=== PATIENT | female | born 1960 | race African-American/Black ===

== ENCOUNTER 2021-03-16 07:57 | Outpatient (CLI) | payer BC | END 2021-03-16 07:58 | disposition home or self-care (01) | LOC: CSHCP 07:57 | PROVIDERS: ATTEND Family Medicine | DX: R06.02 Shortness of breath (principal) | CPT/HCPCS: 94060; 94726; 94729; 94760 ==

== ENCOUNTER 2021-09-14 15:02 | Outpatient (CLI) | payer BC | END 2021-09-14 15:03 | disposition home or self-care (01) | LOC: CSHMAMMO 15:02 | PROVIDERS: ATTEND Family Medicine | DX: Z12.31 Encounter for screening mammogram for malignant neoplasm of breast (principal) | CPT/HCPCS: 77063; 77067 ==

== ENCOUNTER 2021-12-11 17:16 | Observation (INO) | payer BC ==
[2021-12-11 18:22] LABS: #Basophils 0.1 10x3/uL (0.0-0.2); #Eosinphils 0.1 10x3/uL (0.0-0.5); #Monocytes 0.5 10x3/uL (0.0-1.1); %Basophils 0.7 % (0.0-2.0); %Eosinophils 1.3 % (0.0-6.0); %Lymphocytes 16.1 % (18.0-47.0); %Neutrophils 73.6 % (40.0-75.0); Hemoglobin 8.7 g/dL (12.0-15.5); Mean Corpuscular HGB CONC 31.2 g/dL (32.0-36.0); Mean Corpuscular Hemoglobin 24.9 pg (27.0-33.0); Mean Corpuscular Volume 79.7 fl (81.6-98.3); Mean Platelet Volume 11.9 fl (7.4-10.4); Platelet Count 254 10x3/uL (150-450); RBC Distribution Width 14.6 % (11.5-14.5); White Blood Cell (WBC) Count 6.8 10x3/uL (3.5-10.5)
[2021-12-11 18:33] LABS: Phosphorus 3.6 mg/dL (2.3-4.7)
[2021-12-11 18:35] LABS: ALT (SGPT) 12 U/L (8-55); AST (SGOT) 12 U/L (5-34); Albumin 3.5 g/dL (3.4-4.8); Alkaline Phosphatase 84 U/L (40-110); Anion Gap 17 mmol/L (10-20); BUN (Urea Nitrogen) 39 mg/dL (9.8-20.1); Bilirubin, Total 0.3 mg/dL (0.2-1.2); Calc. Creatinine Clearance 0 mL/min (70-130); Calcium 8.8 mg/dL (7.8-10.44); Carbon Dioxide 19 mmol/L (23-31); Chloride 109 mmol/L (98-107); Globulin 3.4 g/dL (2.4-3.5); Glucose 199 mg/dL (80-115); Magnesium 1.8 mg/dL (1.6-2.6); Potassium 4.4 mmol/L (3.5-5.1); Protein, Total 6.9 g/dL (5.8-8.1); Sodium 141 mmol/L (136-145)
[2021-12-11 19:09] LABS: SARS-CoV-2 NAA Rapid Test Not Detected (NotDetected)
[2021-12-11] MEDS ORDERED: Dextrose 5% in Water 1,000 ML IV PRN (19:14)
[2021-12-11] MEDS ORDERED: Guaifenesin DM 100-10/5 ML UDCUP PO PRN (19:14)
[2021-12-11] MEDS ORDERED: Senokot S 8.6-50 MG TAB PO PRN (19:14)
[2021-12-11] MEDS ORDERED: Calcium Carbonate 500 MG ChewTAB PO PRN (19:14)
[2021-12-11] MEDS ORDERED: Dextrose 50% Abboject 50 ML SYRINGE SLOW IVP PRN (19:14)
[2021-12-11] MEDS ORDERED: Acetaminophen 325 MG TAB PO PRN (19:14)
[2021-12-11] MEDS ORDERED: HumaLOG 300 UNITS/3 ML VIAL SC PRN (19:14)
[2021-12-11] MEDS ORDERED: Metoclopramide HCl 10 MG/2 ML VIAL IVP SCH (20:30)
[2021-12-11] MEDS ORDERED: Furosemide 20 MG/2 ML VIAL SLOW IVP SCH (20:30)
[2021-12-11] MEDS ORDERED: EPOETIN ALFA-EPBX (ESRD) 4,000 UNIT/ML VIAL SC SCH (21:00)
[2021-12-11] MEDS ORDERED: Non-Formulary Medication 1 EACH (Brimonidine Tartrate/Timolol [Combigan 0.2%-0.5% Eye Drop R EYE SCH (21:00)
[2021-12-11] MEDS ORDERED: Lantus 1000 UNITS/10 ML VIAL SC SCH (21:00)
[2021-12-11 22:19] VITALS: BMI 35.2
[2021-12-11] MEDS: hydrALAZINE 25 MG TAB PO SCH (22:50)
[2021-12-11] MEDS: Atorvastatin Calcium 40 MG TAB PO SCH (22:50)
[2021-12-11] MEDS: traZODone HCl 50 MG TAB PO SCH (22:50)
[2021-12-11] MEDS: Heparin 5,000 UNITS/ML VIAL SC SCH (22:51)
[2021-12-11] MEDS: Brimonidine Tartrate 0.2% Ophth Soln 5 ml Bottle R EYE SCH (22:56)
[2021-12-11] MEDS: Timolol 0.5% Ophth Soln 5 ml Bottle R EYE SCH (22:56)
[2021-12-12 05:17] LABS: #Eosinphils 0.1 10x3/uL (0.0-0.5); #Monocytes 0.6 10x3/uL (0.0-1.1); #Neutrophils 3.6 10x3/uL (1.5-8.4); %Basophils 0.7 % (0.0-2.0); %Eosinophils 1.5 % (0.0-6.0); %Lymphocytes 28.1 % (18.0-47.0); %Monocytes 10.1 % (0.0-10.0); %Neutrophils 59.4 % (40.0-75.0); Mean Corpuscular HGB CONC 31.5 g/dL (32.0-36.0); Mean Corpuscular Hemoglobin 25.4 pg (27.0-33.0); Mean Corpuscular Volume 80.6 fl (81.6-98.3); Mean Platelet Volume 12.1 fl (7.4-10.4); Platelet Count 274 10x3/uL (150-450); RBC Distribution Width 14.6 % (11.5-14.5); Red Blood Cell (RBC) Count 3.15 10x6/uL (3.90-5.03); White Blood Cell (WBC) Count 6.1 10x3/uL (3.5-10.5)
[2021-12-12 05:36] LABS: Anion Gap 15 mmol/L (10-20); BUN (Urea Nitrogen) 40 mg/dL (9.8-20.1); Calc. Creatinine Clearance 18 mL/min (70-130); Calcium 8.7 mg/dL (7.8-10.44); Carbon Dioxide 22 mmol/L (23-31); Chloride 111 mmol/L (98-107); Glucose 111 mg/dL (80-115); Sodium 144 mmol/L (136-145)
[2021-12-12] MEDS ORDERED: Ferrous Sulfate 325 MG TAB PO SCH (09:00)
[2021-12-12] MEDS ORDERED: METOPROLOL SUCCINATE 200 MG PO SCH (09:00)
[2021-12-12] MEDS: Calcitriol 0.25 MCG CAP PO SCH (09:04)
[2021-12-12] MEDS: Timolol 0.5% Ophth Soln 5 ml Bottle R EYE SCH (09:04)
[2021-12-12] MEDS: Ferrous Sulfate 325 MG TAB PO SCH ×2 (09:04→15:12)
[2021-12-12] MEDS: Alogliptin 6.25 MG TAB PO SCH (09:04)
[2021-12-12] MEDS: Clopidogrel Bisulfate 75 MG TAB PO SCH (09:04)
[2021-12-12] MEDS: Heparin 5,000 UNITS/ML VIAL SC SCH ×3 (09:04→21:11)
[2021-12-12] MEDS: hydrALAZINE 25 MG TAB PO SCH ×3 (09:05→21:10)
[2021-12-12] MEDS: Brimonidine Tartrate 0.2% Ophth Soln 5 ml Bottle R EYE SCH ×2 (09:05→21:12)
[2021-12-12] MEDS: Ondansetron PF 4 MG/2 ML Vial IVP PRN (10:11)
[2021-12-12 15:05] LABS: Hep B Surf Ag Non-Reactive S/CO (NonReactive)
[2021-12-12] MEDS ORDERED: NIFEdipine XL 30 MG TAB PO SCH (21:00)
[2021-12-12] MEDS: Atorvastatin Calcium 40 MG TAB PO SCH (21:09)
[2021-12-12] MEDS: FLUoxetine HCl 20 MG CAP PO SCH (21:10)
[2021-12-12] MEDS: traZODone HCl 50 MG TAB PO SCH (21:10)
[2021-12-12] MEDS: TOUJEO SC SCH (21:11)
[2021-12-13 04:52] LABS: Anion Gap 12 mmol/L (10-20); BUN (Urea Nitrogen) 26 mg/dL (9.8-20.1); Calc. Creatinine Clearance 21 mL/min (70-130); Calcium 8.6 mg/dL (7.8-10.44); Carbon Dioxide 25 mmol/L (23-31); Chloride 105 mmol/L (98-107); Glucose 180 mg/dL (80-115); Potassium 4.2 mmol/L (3.5-5.1); Sodium 138 mmol/L (136-145)
[2021-12-13 05:09] LABS: #Eosinphils 0.1 10x3/uL (0.0-0.5); #Monocytes 0.7 10x3/uL (0.0-1.1); #Neutrophils 3.6 10x3/uL (1.5-8.4); %Basophils 0.6 % (0.0-2.0); %Eosinophils 1.8 % (0.0-6.0); %Lymphocytes 32.2 % (18.0-47.0); %Monocytes 10.4 % (0.0-10.0); %Neutrophils 54.7 % (40.0-75.0); Hemoglobin 8.5 g/dL (12.0-15.5); Mean Corpuscular HGB CONC 30.8 g/dL (32.0-36.0); Mean Corpuscular Hemoglobin 24.8 pg (27.0-33.0); Mean Corpuscular Volume 80.5 fl (81.6-98.3); Mean Platelet Volume 11.9 fl (7.4-10.4); Platelet Count 301 10x3/uL (150-450); RBC Distribution Width 14.6 % (11.5-14.5); Red Blood Cell (RBC) Count 3.43 10x6/uL (3.90-5.03); White Blood Cell (WBC) Count 6.5 10x3/uL (3.5-10.5)
[2021-12-13] MEDS: Aspirin 81 mg Enteric Coated Tablet PO SCH (12:39)
[2021-12-13] MEDS: Calcitriol 0.25 MCG CAP PO SCH (12:39)
[2021-12-13] MEDS: Alogliptin 6.25 MG TAB PO SCH (12:39)
[2021-12-13] MEDS: Ondansetron PF 4 MG/2 ML Vial IVP PRN ×2 (12:39→20:28)
[2021-12-13] MEDS: Ferrous Sulfate 325 MG TAB PO SCH ×2 (12:39→16:07)
[2021-12-13] MEDS: hydrALAZINE 25 MG TAB PO SCH ×3 (12:40→20:30)
[2021-12-13] MEDS: Clopidogrel Bisulfate 75 MG TAB PO SCH (12:40)
[2021-12-13] MEDS: Heparin 5,000 UNITS/ML VIAL SC SCH ×3 (12:40→20:27)
[2021-12-13] MEDS: Brimonidine Tartrate 0.2% Ophth Soln 5 ml Bottle R EYE SCH ×2 (12:40→23:19)
[2021-12-13] MEDS: Amlodipine 10 MG TAB PO SCH (12:40)
[2021-12-13] MEDS ORDERED: Heparin 10,000 UNITS/ 10 ML VIAL FS PRN (13:11)
[2021-12-13] MEDS ORDERED: Tuberculin PPD 0.1 ML VIAL I-DERMAL SCH (13:15)
[2021-12-13 15:04] LABS: HBSAB Concentration Less than 8.00 mIU/mL; Hep B Surf AB Non-Reactive (NonReactive); Hep C IgG Ab Non-Reactive (NonReactive); Hep C Index 0.41 S/CO (0-0.79)
[2021-12-13 17:02] LABS: Hep B Core Total Ab Non-Reactive (NonReactive); Hep B Core Total Index 0.05 S/CO (0-0.79)
[2021-12-13] MEDS: FLUoxetine HCl 20 MG CAP PO SCH (20:24)
[2021-12-13] MEDS: TOUJEO SC SCH (20:24)
[2021-12-13] MEDS: Atorvastatin Calcium 40 MG TAB PO SCH (20:24)
[2021-12-13] MEDS: traZODone HCl 50 MG TAB PO SCH (20:25)
[2021-12-14] MEDS: Ferrous Sulfate 325 MG TAB PO SCH ×2 (10:50→15:29)
[2021-12-14] MEDS: Brimonidine Tartrate 0.2% Ophth Soln 5 ml Bottle R EYE SCH ×2 (10:51→22:37)
[2021-12-14] MEDS: Alogliptin 6.25 MG TAB PO SCH (10:51)
[2021-12-14] MEDS: Aspirin 81 mg Enteric Coated Tablet PO SCH (10:51)
[2021-12-14] MEDS: Amlodipine 10 MG TAB PO SCH (10:51)
[2021-12-14] MEDS: Clopidogrel Bisulfate 75 MG TAB PO SCH (10:52)
[2021-12-14] MEDS: Calcitriol 0.25 MCG CAP PO SCH (10:52)
[2021-12-14] MEDS: Heparin 5,000 UNITS/ML VIAL SC SCH ×3 (10:52→20:28)
[2021-12-14] MEDS: hydrALAZINE 25 MG TAB PO SCH ×3 (10:53→20:27)
[2021-12-14] MEDS: FLUoxetine HCl 20 MG CAP PO SCH (20:27)
[2021-12-14] MEDS: Atorvastatin Calcium 40 MG TAB PO SCH (20:28)
[2021-12-14] MEDS: traZODone HCl 50 MG TAB PO SCH (20:28)
[2021-12-14] MEDS: TOUJEO SC SCH (20:35)
[2021-12-15] MEDS ORDERED: READ PPD TEST SITE PO SCH (09:00)
[2021-12-15] MEDS: Brimonidine Tartrate 0.2% Ophth Soln 5 ml Bottle R EYE SCH (10:45)
[2021-12-15] MEDS: Heparin 5,000 UNITS/ML VIAL SC SCH (10:46)
[2021-12-15] MEDS: Clopidogrel Bisulfate 75 MG TAB PO SCH (10:48)
[2021-12-15] MEDS: Amlodipine 10 MG TAB PO SCH (10:48)
[2021-12-15] MEDS: Calcitriol 0.25 MCG CAP PO SCH (10:48)
[2021-12-15] MEDS: Ferrous Sulfate 325 MG TAB PO SCH (10:49)
[2021-12-15] MEDS: Aspirin 81 mg Enteric Coated Tablet PO SCH (10:49)
[2021-12-15] MEDS: hydrALAZINE 25 MG TAB PO SCH (10:49)
[2021-12-15] MEDS: Alogliptin 6.25 MG TAB PO SCH (10:49)
[2021-12-15 11:28] VITALS: BP 138/59; TEMP 97.9
== END 2021-12-15 16:45 | disposition home or self-care (01) ==
LOC: CSHERS 17:16 → CSHTELE 22:15
PROVIDERS: ADMIT Student in an Organized Health Care Education/Training Program; ATTEND Hospitalist
DX: I12.0 Hypertensive chronic kidney disease with stage 5 chronic kidney disease or end stage renal disease (principal); E11.22 Type 2 diabetes mellitus with diabetic chronic kidney disease; N18.6 End stage renal disease; R11.2 Nausea with vomiting, unspecified; I25.10 Atherosclerotic heart disease of native coronary artery without angina pectoris; E11.65 Type 2 diabetes mellitus with hyperglycemia; Z79.4 Long term (current) use of insulin; Z79.899 Other long term (current) drug therapy; Z95.5 Presence of coronary angioplasty implant and graft; G47.33 Obstructive sleep apnea (adult) (pediatric); D63.1 Anemia in chronic kidney disease; Z20.822 Contact with and (suspected) exposure to COVID-19
CPT/HCPCS: 36415; 36416; 71045; 80048; 80053; 83735; 84100; 84484; 85025; 86580; 86704; 86706; 86803; 87340; 90935; 93005; 96372; 96374; 96375; 96376; G0257; G0378; J1644; J1815; J1940; J2405; J2765; Q5105; U0002

== ENCOUNTER 2022-09-02 07:16 | Emergency (ER) | payer BC ==
[2022-09-02 07:55] LABS: #Eosinphils 0.2 10x3/uL (0.0-0.5); #Monocytes 0.6 10x3/uL (0.0-1.1); #Neutrophils 4.6 10x3/uL (1.5-8.4); %Basophils 0.4 % (0.0-2.0); %Lymphocytes 28.4 % (18.0-47.0); %Monocytes 8.3 % (0.0-10.0); %Neutrophils 60.5 % (40.0-75.0); Hemoglobin 10.6 g/dL (12.0-15.5); Mean Corpuscular HGB CONC 32.1 g/dL (32.0-36.0); Mean Corpuscular Hemoglobin 27.4 pg (27.0-33.0); Mean Corpuscular Volume 85.3 fl (81.6-98.3); Mean Platelet Volume 12.4 fl (7.4-10.4); Platelet Count 190 10x3/uL (150-450); RBC Distribution Width 15.7 % (11.5-14.5); Red Blood Cell (RBC) Count 3.87 10x6/uL (3.90-5.03); White Blood Cell (WBC) Count 7.6 10x3/uL (3.5-10.5)
[2022-09-02 08:08] LABS: Anion Gap 17 mmol/L (10-20); BUN (Urea Nitrogen) 39 mg/dL (9.8-20.1); Calc. Creatinine Clearance 0 mL/min (70-130); Calcium 9.2 mg/dL (7.8-10.44); Carbon Dioxide 23 mmol/L (23-31); Chloride 104 mmol/L (98-107); Estimated GFR 7; Glucose 147 mg/dL (80-115); Potassium 4.1 mmol/L (3.5-5.1); Sodium 140 mmol/L (136-145)
== END 2022-09-02 11:10 | disposition home or self-care (01) ==
LOC: CSHERS 07:16
DX: T82.591A Other mechanical complication of surgically created arteriovenous shunt, initial encounter (principal); I12.0 Hypertensive chronic kidney disease with stage 5 chronic kidney disease or end stage renal disease; E11.22 Type 2 diabetes mellitus with diabetic chronic kidney disease; I25.10 Atherosclerotic heart disease of native coronary artery without angina pectoris; N18.6 End stage renal disease; Z99.2 Dependence on renal dialysis; Z86.16 Personal history of COVID-19
CPT/HCPCS: 80048; 85025; 99284

== ENCOUNTER 2022-12-06 09:52 | Outpatient (CLI) | payer BC | END 2022-12-06 09:53 | disposition home or self-care (01) | LOC: CSHMAMMO 09:52 | PROVIDERS: ATTEND Family Medicine | DX: Z12.31 Encounter for screening mammogram for malignant neoplasm of breast (principal); Z13.820 Encounter for screening for osteoporosis; Z78.0 Asymptomatic menopausal state | CPT/HCPCS: 77063; 77067; 77080 ==

== ENCOUNTER 2023-02-27 12:35 | Outpatient (CLI) | payer BC | END 2023-02-27 12:36 | disposition home or self-care (01) | LOC: CSHMRI 12:35 | PROVIDERS: ATTEND Family Medicine | DX: M47.816 Spondylosis without myelopathy or radiculopathy, lumbar region (principal) | CPT/HCPCS: 72148 ==

== ENCOUNTER 2024-05-25 16:15 | Emergency (ER) | payer BC ==
[2024-05-25] MEDS ORDERED: Ondansetron PF 4 MG/2 ML Vial ONE (17:10)
[2024-05-25] MEDS ORDERED: fentaNYL 50 mcg/mL 1 mL Vial ONE ×2 (17:10→18:03)
[2024-05-25 17:24] LABS: #Basophils 0.06 10x3/uL (0.0-0.2); #Monocytes 0.85 10x3/uL (0.0-1.1); #Neutrophils 5.07 10x3/uL (1.5-8.4); %Basophils 0.8 % (0.0-2.0); %Eosinophils 2.7 % (0.0-6.0); %Lymphocytes 16.2 % (18.0-47.0); %Monocytes 11.5 % (0.0-10.0); %Neutrophils 68.5 % (40.0-75.0); Hematocrit 36.1 % (34.9-44.5); Hemoglobin 11.1 g/dL (12.0-15.5); Mean Corpuscular HGB CONC 30.7 g/dL (32.0-36.0); Mean Corpuscular Hemoglobin 28.2 pg (27.0-33.0); Mean Corpuscular Volume 91.9 fL (81.6-98.3); Mean Platelet Volume 11.7 fL (7.4-10.4); Platelet Count 212 10x3/uL (150-450); RBC Distribution Width 20.9 % (11.5-14.5); Red Blood Cell (RBC) Count 3.93 10x6/uL (3.90-5.03); White Blood Cell (WBC) Count 7.4 10x3/uL (3.5-10.5)
[2024-05-25 17:32] LABS: ALT (SGPT) 27 U/L (8-55); AST (SGOT) 29 U/L (5-34); Albumin 3.2 g/dL (3.4-4.8); Alkaline Phosphatase 91 U/L (40-110); Anion Gap 24 mmol/L (10-20); BUN (Urea Nitrogen) 40 mg/dL (9.8-20.1); Bilirubin, Total 0.2 mg/dL (0.2-1.2); Calc. Creatinine Clearance 0 mL/min (70-130); Calcium 9.6 mg/dL (7.8-10.44); Carbon Dioxide 19 mmol/L (23-31); Chloride 99 mmol/L (98-107); Estimated GFR 4; Globulin 3.7 g/dL (2.4-3.5); Glucose 514 mg/dL (80-115); Lipase 59 U/L (8-78); Potassium 4.3 mmol/L (3.5-5.1); Protein, Total 6.9 g/dL (5.8-8.1); Sodium 138 mmol/L (136-145)
[2024-05-25] MEDS ORDERED: Insulin Regular, Human 100 UNIT/ML 10 ML VIAL ONE (18:30)
[2024-05-25 19:07] LABS: Influenza A by NAA Not Detected (NotDetected); Influenza B by NAA Not Detected (NotDetected); RSV by NAA Not Detected (NotDetected); SARS-CoV-2 NAA Rapid Test Not Detected (NotDetected)
[2024-05-27 11:40] LABS: Actual Bicarbonate (HCO3v) 22.4 mEq/L (22-28); Analyzer IN Cardio CS ICU; Base Excess -2.2 mEq/L (-2 - +2); Calcium, Ionized (venous) 1.08 mmol/L (1.16-1.32); Chloride (VBG) 98 mmol/L (98-106); Hematocrit-VBG 34 % (36.0-47.0); Hemoglobin (Hb) 11.7 g/dL (11.7-16.0); Potassium (VBG) 4.33 mmol/L (3.70-5.30); Puncture Site Other Site; RapidComm Collect By cbn; Sodium 140 mmol/L (133-146)
== END 2024-05-25 22:58 | disposition home or self-care (01) ==
LOC: CSHERS 16:15
DX: R10.9 Unspecified abdominal pain (principal); I12.0 Hypertensive chronic kidney disease with stage 5 chronic kidney disease or end stage renal disease; N18.6 End stage renal disease; E11.22 Type 2 diabetes mellitus with diabetic chronic kidney disease; Z99.2 Dependence on renal dialysis; Z55.6 Problems related to health literacy; E78.5 Hyperlipidemia, unspecified; I25.10 Atherosclerotic heart disease of native coronary artery without angina pectoris; Z79.82 Long term (current) use of aspirin; Z79.899 Other long term (current) drug therapy
CPT/HCPCS: 0241U; 36415; 36416; 71045; 74176; 80053; 82010; 82805; 83605; 83690; 83930; 85025; 87149; 93005; 96361; 96374; 96375; 96376; J1815; J2405; J3010

== ENCOUNTER 2024-06-03 10:38 | Emergency (ER) | payer BC ==
[2024-06-03] MEDS ORDERED: Ondansetron ODT 4 MG TAB ONE (11:49)
[2024-06-03 11:53] LABS: #Basophils 0.04 10x3/uL (0.0-0.2); #Eosinphils 0.18 10x3/uL (0.0-0.5); #Monocytes 0.97 10x3/uL (0.0-1.1); #Neutrophils 7.59 10x3/uL (1.5-8.4); %Basophils 0.4 % (0.0-2.0); %Eosinophils 1.8 % (0.0-6.0); %Lymphocytes 10.2 % (18.0-47.0); %Monocytes 9.9 % (0.0-10.0); %Neutrophils 77.3 % (40.0-75.0); Hematocrit 34.6 % (34.9-44.5); Hemoglobin 10.6 g/dL (12.0-15.5); Mean Corpuscular HGB CONC 30.6 g/dL (32.0-36.0); Mean Corpuscular Hemoglobin 28.4 pg (27.0-33.0); Mean Corpuscular Volume 92.8 fL (81.6-98.3); Mean Platelet Volume 11.3 fL (7.4-10.4); Platelet Count 262 10x3/uL (150-450); RBC Distribution Width 21.1 % (11.5-14.5); Red Blood Cell (RBC) Count 3.73 10x6/uL (3.90-5.03); White Blood Cell (WBC) Count 9.8 10x3/uL (3.5-10.5)
[2024-06-03 12:08] LABS: ALT (SGPT) 23 U/L (8-55); AST (SGOT) 24 U/L (5-34); Albumin 3.1 g/dL (3.4-4.8); Alkaline Phosphatase 84 U/L (40-110); Anion Gap 22 mmol/L (10-20); BUN (Urea Nitrogen) 75 mg/dL (9.8-20.1); Bilirubin, Total 0.2 mg/dL (0.2-1.2); Calc. Creatinine Clearance 0 mL/min (70-130); Calcium 8.9 mg/dL (7.8-10.44); Carbon Dioxide 19 mmol/L (23-31); Chloride 108 mmol/L (98-107); Estimated GFR 3; Globulin 3.6 g/dL (2.4-3.5); Glucose 173 mg/dL (80-115); Protein, Total 6.7 g/dL (5.8-8.1); Sodium 144 mmol/L (136-145)
[2024-06-03] MEDS ORDERED: HYDROcodone/Acetaminophen 5/325 mg Tablet ONE (14:16)
[2024-06-03 14:35] LABS: Bilirubin Neg (Negative); Blood, Urine 250 (Negative); Clarity Cloudy (Clear); Glucose, Urine (Dipstick) 250 mg/dL (Negative); Ketone, Urine Negative (Negative); Leukocyte 500 (Negative); Nitrite Negative (Negative); Protein, Urine (Dipstick) 100 mg/dl (Neg-Trace); Specific Gravity, Urine 1.005 (1.005-1.030); Urobilinogen Normal mg/dL (Less than 2)
[2024-06-03 15:07] LABS: CAUTI Indications for Culture Dysuria,urgency,freq
[2024-06-03 15:08] LABS: Bacteria/HPF 2+ HPF (None Seen); RBC/HPF 21-50 HPF (0-3); Squamous Epithelial 0-3 HPF (0-3); WBC/HPF Greater than 50 HPF (0-3)
[2024-06-03 15:09] LABS: Mucous/LPF 1+ LPF (<2+); White Blood Cell Cast 0-3 LPF (None Seen)
[2024-06-03 15:10] LABS: Urine Culture Reflex Yes Yes
== END 2024-06-03 15:47 | disposition short-term general hospital (02) ==
LOC: CSHERS 10:38
DX: T83.2 Mechanical complication of graft of urinary organ (principal); I12.0 Hypertensive chronic kidney disease with stage 5 chronic kidney disease or end stage renal disease; E11.22 Type 2 diabetes mellitus with diabetic chronic kidney disease; N18.6 End stage renal disease; I25.10 Atherosclerotic heart disease of native coronary artery without angina pectoris; Z99.2 Dependence on renal dialysis; Z79.899 Other long term (current) drug therapy; Z79.82 Long term (current) use of aspirin
CPT/HCPCS: 36415; 80053; 81001; 85025; 87086; 93005; Q0162

== ENCOUNTER 2024-08-16 10:49 | Outpatient (CLI) | payer BC | END 2024-08-16 10:50 | disposition home or self-care (01) | LOC: CSHMAMMO 10:49 | PROVIDERS: ATTEND Family Medicine | DX: Z12.31 Encounter for screening mammogram for malignant neoplasm of breast (principal) | CPT/HCPCS: 77063; 77067 ==

== ENCOUNTER 2024-09-23 10:31 | Outpatient (CLI) | payer BC | END 2024-09-23 10:32 | disposition home or self-care (01) | LOC: CSHCP 10:31 | PROVIDERS: ATTEND Internal Medicine Critical Care Medicine | DX: R06.09 Other forms of dyspnea (principal); J98.4 Other disorders of lung | CPT/HCPCS: 71250; 94060; 94618; 94726; 94729 ==

== ENCOUNTER 2024-10-08 10:19 | Outpatient (CLI) | payer BC | END 2024-10-08 10:20 | disposition home or self-care (01) | LOC: CSHCT 10:19 | PROVIDERS: ATTEND Specialist | DX: M47.22 Other spondylosis with radiculopathy, cervical region (principal); M50.121 Cervical disc disorder at C4-C5 level with radiculopathy; M50.122 Cervical disc disorder at C5-C6 level with radiculopathy | CPT/HCPCS: 72125 ==

== ENCOUNTER 2024-10-15 11:18 | Outpatient (CLI) | payer BC | END 2024-10-15 11:19 | disposition home or self-care (01) | LOC: CSHMRI 11:18 | PROVIDERS: ATTEND Psychiatry & Neurology Neurology | DX: R93.89 Abnormal findings on diagnostic imaging of other specified body structures (principal); D32.0 Benign neoplasm of cerebral meninges | CPT/HCPCS: 70552; 76376 ==

== ENCOUNTER 2025-08-08 05:51 | Emergency (ER) | payer MEDICARE, BC ==
[2025-08-08] MEDS ORDERED: Lidocaine 1% (PF) 30 ML VIAL ONE (06:24)
[2025-08-08] MEDS ORDERED: Lidocaine 1% w/Epinephrine 1:200K 30 ML VIAL ONE (06:25)
[2025-08-08] MEDS ORDERED: Bacitracin 1 PK ONE (06:48)
[2025-08-08 07:03] LABS: Troponin I 0.060 ng/mL (< 0.028)
[2025-08-08 07:06] LABS: ALT (SGPT) Less than 4 U/L (Less than 34); AST (SGOT) 25 U/L (11-34); Albumin 3.2 g/dL (3.1-4.5); Alkaline Phosphatase 80 U/L (40-110); Anion Gap 27 mmol/L (10-20); BUN (Urea Nitrogen) 68 mg/dL (9.8-20.1); Bilirubin, Total 0.2 mg/dL (0.3-1.2); CK (CPK) 246 U/L (29-168); Calc. Creatinine Clearance 0 mL/min (70-130); Calcium 8.2 mg/dL (7.8-10.44); Carbon Dioxide 17 mmol/L (23-31); Chloride 102 mmol/L (98-107); Globulin 3.5 g/dL (2.4-3.5); Glucose 131 mg/dL (80-115); Magnesium 2.5 mg/dL (1.6-2.6); Potassium 4.2 mmol/L (3.5-5.1); Sodium 142 mmol/L (136-145)
[2025-08-08 08:10] LABS: #Basophils 0.05 10x3/uL (0.0-0.2); #Eosinophils 0.17 10x3/uL (0.0-0.5); #Monocytes 1.24 10x3/uL (0.0-1.1); #Neutrophils 10.78 10x3/uL (1.5-8.4); %Basophils 0.4 % (0.0-2.0); %Eosinophils 1.3 % (0.0-6.0); %Lymphocytes 7.8 % (18.0-47.0); %Monocytes 9.3 % (0.0-10.0); %Neutrophils 80.6 % (40.0-75.0); Hematocrit 22.8 % (34.9-44.5); Hemoglobin 6.8 g/dL (12.0-15.5); Mean Corpuscular Hemoglobin 26.5 pg (27.0-33.0); Mean Corpuscular Volume 88.7 fL (81.6-98.3); Platelet Count 153 10x3/uL (150-450); Red Blood Cell (RBC) Count 2.57 10x6/uL (3.90-5.03); White Blood Cell (WBC) Count 13.36 10x3/uL (3.5-10.5)
[2025-08-08 09:12] LABS: INR-International Normal Ratio 0.9; Prothrombin Time 10.4 sec (9.5-12.1)
[2025-08-08 09:13] LABS: PTT Less than 20.0 sec (22.0-33.0)
== END 2025-08-08 10:19 ==
LOC: CSHERS 05:51
DX: S91.012A Laceration without foreign body, left ankle, initial encounter (principal); S00.511A Abrasion of lip, initial encounter; D64.9 Anemia, unspecified; I12.0 Hypertensive chronic kidney disease with stage 5 chronic kidney disease or end stage renal disease; N18.6 End stage renal disease; E87.70 Fluid overload, unspecified; I25.10 Atherosclerotic heart disease of native coronary artery without angina pectoris; E78.00 Pure hypercholesterolemia, unspecified; Z99.2 Dependence on renal dialysis; Z79.899 Other long term (current) drug therapy; W19.XXXA Unspecified fall, initial encounter
CPT/HCPCS: 12001; 36415; 70450; 71045; 72125; 72170; 80053; 82550; 83735; 84484; 85025; 85610; 85730; 93005; 94760; G0390